=== PATIENT | female | born 1945 | race Caucasian/White ===

== ENCOUNTER → 2018-04-11 | Outpatient (CLI) | payer MEDICARE | END | disposition home or self-care (01) | LOC: LAB EV 16:12 → LAB SHORT 16:12 | DX: N30.01 Acute cystitis with hematuria (principal) | CPT/HCPCS: 87077; 87086; 87186 ==

== ENCOUNTER 2018-12-14 12:22 | Emergency (ER) | payer MEDICARE ==
[~2018-12-14] VITALS: Ht 162.6 cm; Wt 59.0 kg
[2018-12-14] MEDS ORDERED: ALLO300 PO (13:32)
[2018-12-14] MEDS ORDERED: ATEN50 PO (13:32)
[2018-12-14] MEDS ORDERED: LISI20 PO (13:32)
[2018-12-14 14:20] LABS: Source, Urine Clean Catch
[2018-12-14 14:33] LABS: Appearance, Urine Hazy (Clear); Bilirubin, Urine Neg (Neg); Blood, Urine 3+ (Neg); Color, Urine Amber (P-Yellow); Glucose Qualitative, Urine Neg (Neg); Ketones, Urine Neg (Neg); Leukocyte Esterase, Urine 1+ (Neg); Nitrite, Urine Neg (Neg); Protein, Urine 2+ (Neg); Specific Gravity, Urine 1.025 (1.003-1.022); Urobilinogen, Urine 1+ (Normal)
[2018-12-14 14:50] LABS: BASOPHILS ABSOLUTE AUTO 0.21 K/mm3 (0.00-0.23); BASOPHILS PERCENT AUTO 1 % (0-2); EOSINOPHILS ABSOLUTE AUTO 0.11 K/mm3 (0.00-0.68); EOSINOPHILS PERCENT AUTO 1 % (0-6); Hematocrit 52.9 % (33.0-51.0); Hemoglobin 16.7 g/dL (11.5-16.0); Mean Corpuscular HGB Conc 31.6 g/dL (31.5-36.5); Mean Corpuscular Volume 98 fL (80-100); NRBC ABSOLUTE 0.38 K/mm3 (0.00-0.02); NRBC Auto 1.9 /100 WBC (0.0-0.2); RDW Coefficient Variation 16.7 % (11.7-14.2); RDW Standard Deviation 57.6 fL (35.1-46.3); Red Blood Cell Count 5.39 M/mm3 (3.80-5.20); White Blood Cell Count 19.89 K/mm3 (4.00-11.30)
[2018-12-14 14:51] LABS: Bacteria Many /hpf; Squamous Epithelial Cells Few /hpf (Few); Transitional Epithelial Cells Few /hpf (0-Rare)
[2018-12-14 14:58] LABS: IMMATURE GRAN ABSOLUTE AUTO 1.61 K/mm3 (0.00-0.10); IMMATURE GRAN PERCENT AUTO 8 % (0-1); LYMPHOCYTES ABSOLUTE AUTO 4.49 K/mm3 (0.84-5.20); LYMPHOCYTES PERCENT AUTO 23 % (21-46); MONOCYTES ABSOLUTE AUTO 3.65 K/mm3 (0.16-1.47); MONOCYTES PERCENT AUTO 18 % (4-13); Mean Platelet Volume 13.5 fL (9.1-12.4); NEUTROPHILS ABSOLUTE AUTO 9.82 K/mm3 (1.96-9.15); NEUTROPHILS PERCENT AUTO 49 % (41-73); Platelet Count 203 K/mm3 (150-400)
[2018-12-14 15:17] LABS: Alanine Aminotransfer (ALT/SGP 29 U/L (12-78); Albumin/Globulin Ratio 0.5 (0.8-1.8); Alk Phos 113 U/L (50-136); Anion Gap 6 mmol/L (6-16); Aspartate Aminotrans (AST/SGOT 64 U/L (12-37); Bilirubin, Total 1.3 mg/dL (0.1-1.0); Blood Urea Nitrogen 20 mg/dL (8-24); Bun/Creatinine Ratio 26.8 (12.0-20.0); CO2, Blood 24 mmol/L (21-32); Calcium, Blood 8.4 mg/dL (8.5-10.1); Chloride, Blood 104 mmol/L (98-108); Creatinine, Blood 0.75 mg/dL (0.40-1.00); Globulin, Blood 5.9 g/dL (2.2-4.0); Glomerular Filtration Rate >60 (60-); Glucose, Blood 88 mg/dL (70-99); Potassium, Blood 6.2 mmol/L (3.5-5.5); Sodium, Blood 134 mmol/L (136-145); Total Protein, Blood 8.9 g/dL (6.4-8.2)
[2018-12-14 16:09] LABS: Alanine Aminotransfer (ALT/SGP 26 U/L (12-78); Albumin, Blood 2.8 g/dL (3.4-5.0); Albumin/Globulin Ratio 0.5 (0.8-1.8); Alk Phos 107 U/L (50-136); Anion Gap 8 mmol/L (6-16); Aspartate Aminotrans (AST/SGOT 47 U/L (12-37); Bilirubin, Total 1.1 mg/dL (0.1-1.0); Blood Urea Nitrogen 20 mg/dL (8-24); Bun/Creatinine Ratio 31.1 (12.0-20.0); CO2, Blood 21 mmol/L (21-32); Calcium, Blood 7.6 mg/dL (8.5-10.1); Chloride, Blood 106 mmol/L (98-108); Creatinine, Blood 0.64 mg/dL (0.40-1.00); Globulin, Blood 5.4 g/dL (2.2-4.0); Glomerular Filtration Rate >60 (60-); Glucose, Blood 98 mg/dL (70-99); Potassium, Blood 5.1 mmol/L (3.5-5.5); Sodium, Blood 135 mmol/L (136-145); Total Protein, Blood 8.2 g/dL (6.4-8.2)
[2018-12-14] MEDS ORDERED: HYDR1TAB94 PO (16:53)
[2018-12-14] MEDS ORDERED: ONDA4ODT MM (16:53)
== END 2018-12-14 17:04 | disposition home or self-care (01) ==
LOC: ER 12:22
PROVIDERS: Physician Assistant
DX: N13.30 Unspecified hydronephrosis (principal); Z79.899 Other long term (current) drug therapy
CPT/HCPCS: 36415; 74176; 80053; 81001; 85025; 87086

== ENCOUNTER → 2019-04-04 | Outpatient (CLI) | payer MEDICARE ==
[~2019-04-04] MED LIST: ALLO300 PO; ATEN50 PO; HYDR1TAB94 PO; LISI20 PO; ONDA4ODT MM
[2019-04-04 13:45] LABS: Hematocrit 46.8 % (33.0-51.0); Mean Corpuscular HGB 30.9 pg (26.0-34.0); Mean Corpuscular HGB Conc 32.1 g/dL (31.5-36.5); Mean Corpuscular Volume 96 fL (80-100); NRBC ABSOLUTE 0.31 K/mm3 (0.00-0.02); NRBC Auto 1.4 /100 WBC (0.0-0.2); Platelet Count 174 K/mm3 (150-400); RDW Coefficient Variation 16.9 % (11.7-14.2); RDW Standard Deviation 57.9 fL (35.1-46.3); Red Blood Cell Count 4.86 M/mm3 (3.80-5.20); White Blood Cell Count 22.92 K/mm3 (4.00-11.30)
[2019-04-04 13:56] LABS: Alanine Aminotransfer (ALT/SGP 24 U/L (12-78); Albumin, Blood 2.6 g/dL (3.4-5.0); Albumin/Globulin Ratio 0.5 (0.8-1.8); Alk Phos 108 U/L (50-136); Anion Gap 9 mmol/L (6-16); Aspartate Aminotrans (AST/SGOT 29 U/L (12-37); Bilirubin, Total 1.1 mg/dL (0.1-1.0); Blood Urea Nitrogen 32 mg/dL (8-24); Bun/Creatinine Ratio 39.1 (12.0-20.0); CO2, Blood 23 mmol/L (21-32); Calcium, Blood 7.7 mg/dL (8.5-10.1); Chloride, Blood 105 mmol/L (98-108); Creatinine, Blood 0.82 mg/dL (0.40-1.00); Globulin, Blood 4.8 g/dL (2.2-4.0); Glomerular Filtration Rate >60 (60-); Glucose, Blood 79 mg/dL (70-99); Potassium, Blood 4.2 mmol/L (3.5-5.5); Sodium, Blood 137 mmol/L (136-145); Total Protein, Blood 7.4 g/dL (6.4-8.2)
[2019-04-04 14:34] LABS: BAND PERCENT MAN 10 % (0-8); BASOPHILS PERCENT MAN 0 % (0-2); EOSINOPHILS ABSOLUTE MAN 0.22 K/mm3 (0.00-0.68); EOSINOPHILS PERCENT MAN 1 % (0-6); LYMPHOCYTES ABSOLUTE MAN 2.52 K/mm3 (0.84-5.20); LYMPHOCYTES PERCENT MAN 11 % (21-46); MONOCYTES ABSOLUTE MAN 4.35 K/mm3 (0.16-1.47); MONOCYTES PERCENT MAN 19 % (4-13); NEUTROPHILS ABSOLUTE MAN 15.81 K/mm3 (1.96-9.15); SEG NEUTROPHILS PERCENT MAN 59 % (41-73); TOTAL CELLS COUNTED 100
== END | disposition home or self-care (01) ==
LOC: LAB SHORT 13:15 → LAB 13:15
PROVIDERS: Internal Medicine Hematology & Oncology
DX: C93.10 Chronic myelomonocytic leukemia not having achieved remission (principal)
CPT/HCPCS: 80053; 85025

== ENCOUNTER 2020-03-06 19:02 | Emergency (ER) | payer MEDICARE ==
[~2020-03-06] VITALS: Ht 162.6 cm; Wt 61.2 kg
[~2020-03-06 19:02] MED LIST changes: -Cipro500 MG PO
[2020-03-06 20:56] LABS: Source, Urine Clean Catch
[2020-03-06 20:59] LABS: Bilirubin, Urine Neg (Neg); Blood, Urine 5+ (Neg); Glucose Qualitative, Urine Neg (Neg); Ketones, Urine 2+ (Neg); Leukocyte Esterase, Urine 2+ (Neg); Nitrite, Urine Neg (Neg); Protein, Urine 3+ (Neg); Urobilinogen, Urine NORM (Normal)
[2020-03-06 21:06] LABS: Appearance, Urine Hazy (Clear); Color, Urine Yellow (P-Yellow)
[2020-03-06 21:07] LABS: Red Blood Cells, Urine 50-100 /hpf (0-2)
[2020-03-06 21:08] LABS: Bacteria Few /hpf; Squamous Epithelial Cells Rare /hpf (Few)
[2020-03-06] MEDS ORDERED: Cipro500 MG PO (21:43)
== END 2020-03-06 22:09 | disposition home or self-care (01) ==
LOC: ER 19:02
PROVIDERS: Emergency Medicine
DX: N12 Tubulo-interstitial nephritis, not specified as acute or chronic (principal); Z79.899 Other long term (current) drug therapy
CPT/HCPCS: 36415; 74176; 81001; 87086; 96360; 99284-25; J7030

== ENCOUNTER → 2020-03-06 | Outpatient (CLI) | payer MEDICARE ==
[~2020-03-06] MED LIST changes: +Cipro500 MG PO
[2020-03-06 16:20] LABS: Hematocrit 44.4 % (33.0-51.0); Hemoglobin 14.2 g/dL (11.5-16.0); Mean Corpuscular HGB 30.9 pg (26.0-34.0); Mean Corpuscular Volume 97 fL (80-100); NRBC ABSOLUTE 2.36 K/mm3 (0.00-0.02); NRBC Auto 25.5 /100 WBC (0.0-0.2); RDW Coefficient Variation 23.3 % (11.7-14.2); RDW Standard Deviation 79.8 fL (35.1-46.3); Red Blood Cell Count 4.59 M/mm3 (3.80-5.20)
[2020-03-06 16:22] LABS: Bacteria Few /hpf; Red Blood Cells, Urine TNTC /hpf (0-2); Squamous Epithelial Cells Few /hpf (Few)
[2020-03-06 16:30] LABS: Albumin, Blood 3.3 g/dL (3.4-5.0); Albumin/Globulin Ratio 0.7 (0.8-1.8); Bilirubin, Total 2.6 mg/dL (0.1-1.0); Bun/Creatinine Ratio 18.6 (12.0-20.0); Calcium, Blood 8.2 mg/dL (8.5-10.1); Creatinine, Blood 0.97 mg/dL (0.40-1.00); Globulin, Blood 4.7 g/dL (2.2-4.0); Potassium, Blood 3.6 mmol/L (3.5-5.5)
[2020-03-06 18:02] LABS: BAND PERCENT MAN 5 % (0-8); BASOPHILS ABSOLUTE MAN 0.18 K/mm3 (0.00-0.23); BASOPHILS PERCENT MAN 2 % (0-2); BLASTS PERCENT MAN 2 % (0-0); EOSINOPHILS ABSOLUTE MAN 0.18 K/mm3 (0.00-0.68); EOSINOPHILS PERCENT MAN 2 % (0-6); LYMPHOCYTES ABSOLUTE MAN 3.42 K/mm3 (0.84-5.20); LYMPHOCYTES PERCENT MAN 37 % (21-46); METAMYELOCYTE ABSOLUTE MAN 0.27 K/mm3 (0.00-0.00); METAMYELOCYTE PERCENT MAN 3 % (0-0); MONOCYTES ABSOLUTE MAN 0.37 K/mm3 (0.16-1.47); MONOCYTES PERCENT MAN 4 % (4-13); MYELOCYTE ABSOLUTE MAN 0.64 K/mm3 (0.00-0.00); MYELOCYTE PERCENT MAN 7 % (0-0); NEUTROPHILS ABSOLUTE MAN 3.79 K/mm3 (1.96-9.15); PROMYELOCYTE ABSOLUTE MAN 0.18 K/mm3 (0.00-0.00); PROMYELOCYTE PERCENT MAN 2 % (0-0); SEG NEUTROPHILS PERCENT MAN 36 % (41-73); TOTAL CELLS COUNTED 100
[2020-03-06 18:11] LABS: Platelet Count 10 K/mm3 (150-400)
[2020-03-06 18:23] LABS: White Blood Cell Count 9.25 K/mm3 (4.00-11.30)
== END | disposition home or self-care (01) ==
LOC: LAB SHORT 16:14 → LAB EV 16:14
PROVIDERS: Physician Assistant Surgical
DX: R10.9 Unspecified abdominal pain (principal); R31.9 Hematuria, unspecified
CPT/HCPCS: 80053; 81015; 85025; 87077; 87086; 87186

== ENCOUNTER 2020-03-07 13:40 | Emergency (ER) | payer MEDICARE ==
[~2020-03-07] VITALS: Ht 162.6 cm; Wt 60.8 kg
[~2020-03-07 13:40] MED LIST changes: +Cipro500 MG PO
== END 2020-03-07 17:52 | disposition home or self-care (01) ==
LOC: ER 13:40
DX: D69.6 Thrombocytopenia, unspecified (principal); Z79.899 Other long term (current) drug therapy; Z85.6 Personal history of leukemia
CPT/HCPCS: 36415; 86900; 86901; 99282; A9270; J7030; P9035

== ENCOUNTER 2020-03-12 14:27 | Day surgery (SDC) | payer MEDICARE ==
--- NOTE | 2020-03-12 17:52 | NUR ---
PT'S O2 SAT 87 ON RA. SHE REPORTS HER OXYGEN LEVELS HAVE BEEN LOWER LATELY. ENCOURAGED HER TO CONTACT HER MD OR GO TO ER IF SHE HAS INCREASING SOB.
== END 2020-03-12 17:45 | disposition home or self-care (01) ==
LOC: ATC 14:27
DX: C93.10 Chronic myelomonocytic leukemia not having achieved remission (principal); D69.59 Other secondary thrombocytopenia; I10 Essential (primary) hypertension; Z79.899 Other long term (current) drug therapy
CPT/HCPCS: 36430; 86900; 86901; 96360; J7030; P9035

== ENCOUNTER 2020-04-03 18:04 | Observation (INO) | payer MEDICARE ==
[~2020-04-03] VITALS: Ht 162.6 cm; Wt 61.5 kg
[2020-04-03 19:19] LABS: Hematocrit 50.1 % (33.0-51.0); Hemoglobin 14.6 g/dL (11.5-16.0); Mean Corpuscular HGB 31.3 pg (26.0-34.0); Mean Corpuscular HGB Conc 29.1 g/dL (31.5-36.5); Mean Corpuscular Volume 107 fL (80-100); NRBC ABSOLUTE 7.99 K/mm3 (0.00-0.02); NRBC Auto 7.5 /100 WBC (0.0-0.2); RDW Coefficient Variation 24.5 % (11.7-14.2); RDW Standard Deviation 97.3 fL (35.1-46.3); Red Blood Cell Count 4.67 M/mm3 (3.80-5.20)
[2020-04-03 19:23] LABS: Platelet Count 17 K/mm3 (150-400); White Blood Cell Count 107.01 K/mm3 (4.00-11.30)
[2020-04-03 20:02] LABS: Albumin, Blood 2.5 g/dL (3.4-5.0); Albumin/Globulin Ratio 0.5 (0.8-1.8); Bilirubin, Total 2.9 mg/dL (0.1-1.0); Bun/Creatinine Ratio 13.5 (12.0-20.0); Calcium, Blood 9.6 mg/dL (8.5-10.1); Creatinine, Blood 1.48 mg/dL (0.40-1.00); Globulin, Blood 4.7 g/dL (2.2-4.0); Potassium, Blood 5.7 mmol/L (3.5-5.5); Total Protein, Blood 7.2 g/dL (6.4-8.2)
[2020-04-03 20:06] LABS: BAND PERCENT MAN 4 % (0-8); BASOPHILS ABSOLUTE MAN 1.07 K/mm3 (0.00-0.23); BASOPHILS PERCENT MAN 1 % (0-2); BLASTS PERCENT MAN 4 % (0-0); EOSINOPHILS ABSOLUTE MAN 1.07 K/mm3 (0.00-0.68); EOSINOPHILS PERCENT MAN 1 % (0-6); LYMPHOCYTES ABSOLUTE MAN 52.43 K/mm3 (0.84-5.20); LYMPHOCYTES PERCENT MAN 49 % (21-46); METAMYELOCYTE ABSOLUTE MAN 3.21 K/mm3 (0.00-0.00); METAMYELOCYTE PERCENT MAN 3 % (0-0); MONOCYTES ABSOLUTE MAN 8.56 K/mm3 (0.16-1.47); MONOCYTES PERCENT MAN 8 % (4-13); MYELOCYTE ABSOLUTE MAN 2.14 K/mm3 (0.00-0.00); MYELOCYTE PERCENT MAN 2 % (0-0); NEUTROPHILS ABSOLUTE MAN 34.24 K/mm3 (1.96-9.15); SEG NEUTROPHILS PERCENT MAN 28 % (41-73); TOTAL CELLS COUNTED 100
--- NOTE | 2020-04-03 23:15 | NUR ---
2300 REPORT RECEIVED FROM JOEY RN, ER NURSE; PT ADMITTED TO ROOM 359 PER CART FROM ER; PT TRANSFERRED FROM CART TO BED; SLIGHT DIZZINESS VOICED WHILE MOVING; ALERT AND ORIENTED X 4; BED ALARM APPLIED.
[2020-04-04 05:07] LABS: Hematocrit 44.2 % (33.0-51.0); Mean Corpuscular HGB 31.6 pg (26.0-34.0); Mean Corpuscular HGB Conc 29.4 g/dL (31.5-36.5); Mean Corpuscular Volume 107 fL (80-100); NRBC ABSOLUTE 6.18 K/mm3 (0.00-0.02); NRBC Auto 6.8 /100 WBC (0.0-0.2); RDW Coefficient Variation 24.2 % (11.7-14.2); Red Blood Cell Count 4.12 M/mm3 (3.80-5.20)
[2020-04-04 05:14] LABS: White Blood Cell Count 91.28 K/mm3 (4.00-11.30)
[2020-04-04 05:15] LABS: Platelet Count 15 K/mm3 (150-400)
[2020-04-04 05:26] LABS: Albumin/Globulin Ratio 0.5 (0.8-1.8); Bilirubin, Total 2.5 mg/dL (0.1-1.0); Creatinine, Blood 1.69 mg/dL (0.40-1.00)
[2020-04-04 05:29] LABS: BAND PERCENT MAN 8 % (0-8); BASOPHILS ABSOLUTE MAN 1.82 K/mm3 (0.00-0.23); BASOPHILS PERCENT MAN 2 % (0-2); BLASTS PERCENT MAN 1 % (0-0); EOSINOPHILS ABSOLUTE MAN 0.91 K/mm3 (0.00-0.68); EOSINOPHILS PERCENT MAN 1 % (0-6); LYMPHOCYTES % ATYPICAL MANUAL 1 % (0-0); LYMPHOCYTES ABSOLUTE MAN 27.38 K/mm3 (0.84-5.20); LYMPHOCYTES PERCENT MAN 29 % (21-46); METAMYELOCYTE ABSOLUTE MAN 0.91 K/mm3 (0.00-0.00); METAMYELOCYTE PERCENT MAN 1 % (0-0); MONOCYTES PERCENT MAN 8 % (4-13); MYELOCYTE ABSOLUTE MAN 1.82 K/mm3 (0.00-0.00); MYELOCYTE PERCENT MAN 2 % (0-0); NEUTROPHILS ABSOLUTE MAN 49.29 K/mm3 (1.96-9.15); PROMYELOCYTE ABSOLUTE MAN 0.91 K/mm3 (0.00-0.00); PROMYELOCYTE PERCENT MAN 1 % (0-0); SEG NEUTROPHILS PERCENT MAN 46 % (41-73); TOTAL CELLS COUNTED 100
--- NOTE | 2020-04-04 05:40 | NUR ---
SHIFT SUMMARY: 74 Y/O FEMALE RESTED COMFORTABLY ALL SHIFT; DENIES PAIN OR NAUSEA; VOIDED 100ML DARK TEA COLORED FLUID ONCE THIS SHIFT; ALERT AND ORIENTED X 4; PT VERY WEAK; PTS CBG AT 0300 WAS 95; PT HAS DRIED DARK BLISTERS TO BILATERAL HANDS #2 DIGITS WITH PHOTOS PLACED ON CHART; BED ALARM APPLIED, BED LOW POSITION WITH CALL LIGHT AT SIDE.
--- NOTE | 2020-04-04 15:30 | NUR ---
PATIENT HAD AN UNEVENTFUL DAY. VITALS HAVE BEEN STABLE AND WNL. BLOOD SUGARS IN THE LOW 100s. DENIES PAIN AND DISCOMFORT. REMAINS ON 2L O2 VIA NC AND CONTINUOUS BIOX, SATING IN THE LOW 90s. CALLS APPROPRIATELY FOR STAFF ASSIST. PATIENT RESTING IN BED AT THIS TIME. WILL CONTINUE TO MONITOR AND PROVIDE CARE NEEDED.
--- NOTE | 2020-04-04 22:20 | NUR ---
1935 PT RESTING COMFORTABLY IN BED; CHEERFUL.
--- NOTE | 2020-04-05 04:12 | NUR ---
SHIFT SUMMARY: 74 Y/O FEMALE RESTED COMFORTABLY ALL SHIFT; PT DENIES PAIN; PT CONTINUES TO EAT/DRINK FOOD AND DRINKS VERY POORLY; PT HAS POOR URINE OUTPUT (BLADDER SCAN FOR 25ML THIS SHIFT); PT VERY QUIET AND WITHDRAWN AT TIMES THIS SHIFT; PT DESIRES HAVE SPOUSE VISIT AT SIDE WITH THIS NURSE PASSING ON CONCERNS TO CHARGE NURSE VISITATION RULES CHANGE ON 04/06--VISITORS ARE ALLOWED DURING DAY LIGHT HOURS; PT AWAITING POSSIBLE TRANSISTION TO COMFORT CARE; ALERT AND ORIENTED X 4; BED ALARM APPLIED, BED LOW POSITION WITH CALL LIGHT AT SIDE.
--- NOTE | 2020-04-05 09:53 | NUR ---
Late entry. pt slept most of day yesterday so saw her at dinner. pt fatigued open to conversation but struggled a little to follow. She states her family is coming in and they are going to meet with doctor valentine and then decide a plan. She states she is ok with whatever comes and will keep moving forward. She has a very peacfull attitude and her autonomy is with her family helping in decison making. Advised I will see her for symptome managment and supportive care and after their meeting help with a plan encouraged her to rest as much as possible so she wont be so timred with nshe goes home and can enjoy her visiting family. will follow up with care managers and pysicians.
--- NOTE | 2020-04-05 20:54 | NUR ---
Called by bedside nurse this afternoon to discuss paln of acre with patients daughter and son. Review of prognsosis and phsyicain interaction. Advised hospitalist was in close contact with oncologist. They feel father is struggling with relaying information and plan and plan to them. Suggested they reach out to cancer center tomorrow so they can feel right about hospice. Careful review of hospice and what it offers and benefits for quality of life and support for whole family. they were understanding and expressed some relief. will follow up and supportive care they requested chapline to follow.
--- NOTE | 2020-04-06 06:24 | NUR ---
SHIFT SUMMARY A/O, ABLE TO MAKE NEEDS KNOWN. COOPERATIVE WITH CARE. ANSWERS QUESTIONS APPROPRIATELY. C/O PAIN/DISCOMFORT TO L ABDOMEN, RATED 6/10; MEDICATED PER EMAR. STATES ADEQUATE RELIEF. APPEARED TO REST MUCH OF SHIFT. REPOSITIONED A FEW TIMES. UP TO BSC /c 1P ASSIST. NO ACUTE CHANGES NOTED OVERNIGHT. BED REMAINS IN LOWEST POSITION; ALARM ON. CALL LIGHT AND BELONGINGS WITHIN REACH. WCTM. REPORT TO ONCOMING RN.
[2020-04-06] MEDS ORDERED: Norco 5-325 Ta1 EACH PO (12:00)
--- NOTE | 2020-04-06 15:59 | NUR ---
SUMMARY DR HASTINGS IN TO SEE PT THIS AM, STATE PLAN CONTINUES FOR HOME w HOSPICE CARE TODAY, PLACE ORDERS, SPOKE w PT'S & SON. [employer] PATTERN DRAFTER MAKING ARRANGEMENTS STATE HOSPICE & FAMILY WILL NOT BE ABLE TO HAVE HOME PREPARED TODAY, D/C ON HOLD UNTIL TOMORROW/DR SILVA. PT IS A/O X2-3, VERY WEAK/FATIGUED, HOWEVER AWARE & AGREEABLE TO PLAN. SHE HAS HAD NO APPETITE, EAT ONLY SM AMTS HERACLIO PUDDING. SHE HAS HAD ABD PAIN, HAVE GIVEN HYDROCODONE & PERCOCET FOR RELEIF TODAY, HAVE REPOSITIONED MULT X'S TO ASSIST HER w COMFORT. BLOOD SUGARS 70'S, DR SILVA D/C CBG'S THIS AFTERNOON. PT & SON HAVE BEEN IN TO VISIT.
--- NOTE | 2020-04-06 17:44 | NUR ---
Initial spiritual care note: Mrs. Anglin appeared quite frail and very weak. I was able to prayer with her before discharge home with hospice. Mrs. Anglin is at peace with and asked that I pray for her family. We prayed together for this. She expressed gratitude for visit.
--- NOTE | 2020-04-06 19:17 | NUR ---
PT STATE CONTINUING ABD PAIN, STATE UNABLE TO EAT DINNER, NO INTEREST/NO APPETITE. PRN PERCOCET 1 TAB GIVEN HOWEVER PT STATE INEFFECTIVE. BP 90'S/40'S. DR SILVA NOTIFIED. STATE BP NOT AN ISSUE @ THIS POINT, STOP ROUTINE VS, ORDER START MS CONTIN 15MG BID TO ENHANCE PAIN RELIEF. REPORT TO OPAL REDMOND.
--- NOTE | 2020-04-07 00:47 | NUR ---
THIS RN ROUNDED ON PT AT 0015 AND OBSERVED THAT RR HAD SLOWED, SLIGHT ORAL SECRETIONS DEVELOPED, FAINT COARSE LS HAD DEVELOPED, EXT'S FELT COOL AND PULSES WERE WEAK/THREADY. BP WAS 64/41 W/HR 56 BPM AND IRREGULAR AT THE TIME. I CALLED PAPER PATTERN FOLDER (HUMPHREY COPELAND) AND SKIN TANNER (JORGE MITCHELL) TO HAVE STAFF AT BEDSIDE FOR COMFORT WHILE ATTEMPTING TO CALL FAMILY TO ALERT THEM OF PT'S DETERIORATION. I WAS ABLE TO REACH NILAY (PT'S DAUGHTER) AFTER FAILED ATTEMPT TO GET IN TOUCH W/PT'S (KYREE). UPDATE WAS PROVIDED AND SHE GAVE ME KAYLA'S (HER BROTHER) PHONE NUMBER WHO IS STAYING AT A LOCAL HOTEL. I LEFT A VOICEMAIL TO INFORM OF THE CHANGE IN CONDITION THEN CALLED NILAY AGAIN TO LET HER KNOW HE DIDN'T ANSWER. WHILE ON THE PHONE W/NILAY I WAS ALERTED THAT SHE'D AT 0030. NILAY SAID SHE'D NOTIFY HER DAD AND LOCAL FAMILY TO SEE IF THEY'D WANT TO COME IN. SHE CALLED BACK TO INFORM ME THAT THEY WERE ON THEIR WAY AND SHE WASN'T AWARE IF A HOME HAD BEEN SPECIFIED. PASTORAL CARE IS BEING ARRANGED PER NILAY'S REQUEST AND RAHEEM NORMAN AWARE. DOCTOR PAGED AND WILL BE INFORMED UPON RETURNED CALL. STAFF AWAITING FAMILY'S ARRIVAL AND BELONGINGS HAVE BEEN GATHERED.
--- NOTE | 2020-04-07 01:46 | NUR ---
FAMILY AND PASTORAL CARE AT BEDSIDE.
--- NOTE | 2020-04-07 02:12 | NUR ---
Patient's family arrive, I conduct a life review, and provide scripture reading, prayer and help family select a home ([facility]). Family grieves appropriately and verbalizes appreciation for the time and care given.
--- NOTE | 2020-04-07 02:17 | NUR ---
FAMILY LEFT W/PT'S BELONGINGS AND DESIGNATED [facility] [place]. EDUCATION COORDINATOR, HUMPHREY COPELAND AWARE.
== END 2020-04-07 00:29 ==
LOC: ER 18:04 → MEDS 18:05
PROVIDERS: Emergency Medicine; Nurse Practitioner Acute Care; ADMIT Internal Medicine
DX: C92.50 Acute myelomonocytic leukemia, not having achieved remission (principal); I10 Essential (primary) hypertension; N17.9 Acute kidney failure, unspecified; E43 Unspecified severe protein-calorie malnutrition; R64 Cachexia; E16.2 Hypoglycemia, unspecified; Z66 Do not resuscitate; Z79.899 Other long term (current) drug therapy; Z68.21 Body mass index [BMI] 21.0-21.9, adult
CPT/HCPCS: 36415; 71046; 80053; 82947; 85025; 86850; 86900; 86901; 93005; 93010; 94762; 96361; 96374; 96375; 99285-25; A9270-GY; G0378; J2405; J2930; J7030